=== PATIENT | male | born 1960 | race Hispanic/Latino ===

== ENCOUNTER 2021-06-06 09:48 | Day surgery (SDC) | payer OTHER ==
[2021-06-02 15:49] LABS: Protime INR 0.92
[2021-06-02 16:06] LABS: Absolute Lymphocytes (CBC) 1.4 K/uL (0.7-4.9); Basophils % 0.8 % (0-1.3); Hematocrit 47.2 % (39.6-49.0); Lymphocytes % 19.4 % (15.3-44.8); MPV 9.2 fL (7.6-11.3); RBC Red Blood Cell Count 5.36 M/uL (4.33-5.43)
[2021-06-02 16:50] LABS: COL/ADP 81 SECONDS (56-102); COL/EPI 105 SECONDS (80-184)
--- NOTE | 2021-06-03 11:47 | EKG ---
Test Date: 2021-06-02 Test Time: 13:59:43 Director Drug: SHANICE MEASUREMENT RESULTS: Intervals: Rate: 75 GA: 186 QRSD: 82 QT: 386 QTc: 431 [place]: P: 37 GA: 186 QRS: 8 T: 14 INTERPRETIVE STATEMENTS: Normal sinus rhythm Inferior infarct, age undetermined Abnormal ECG Compared to ECG 06/02/2021 09:14:36 Atrial premature complex(es) no longer present Atrial abnormality no longer present Myocardial infarct finding still present Electronically Signed On 06-03-21 11:47:02 CDT by Nick Conrad
[2021-06-06] MEDS: OXYMETAZOLINE HCL 0.05% 15ML NAS ONE ×3 (10:35→10:50)
[2021-06-06] MEDS ORDERED: Ringers Lactate 1,000 ML IV ONE (10:44)
[2021-06-06] MEDS ORDERED: propofoL 200 MG/20 ML VIAL IV ONE (11:41)
[2021-06-06] MEDS ORDERED: MIDAZOLAM HCL 2 MG/2 ML INJ ONE (11:41)
[2021-06-06] MEDS ORDERED: FENTANYL CITR 100 MCG/2 ML ONE (11:42)
[2021-06-06] MEDS ORDERED: LIDOCAINE 1% MPF 5 ML VIAL ONE (11:42)
[2021-06-06] MEDS ORDERED: ROCURONIUM 50 MG/5 ML VIAL IV ONE (11:42)
[2021-06-06] MEDS ORDERED: OXYMETAZOLINE HCL 0.05% 15ML NAS ONE (12:31)
[2021-06-06] MEDS ORDERED: LIDOCAINE 1% W/EPI 1:100,000 MDV 20 ML VIAL ONE (12:31)
[2021-06-06] MEDS ORDERED: LIDOCAINE JELLY 2%- 5 ML TUBE ONE (12:40)
--- NOTE | 2021-06-06 13:23 | P.BOP ---
Preoperative diagnosis: chronic maxillary sinusitis, left Postoperative diagnosis: same, fungal ball Primary procedure: NE with L max antrostomy and removal of tissue/content writer: NONE,NONE Estimated blood loss: 10ml Specimen: left culture, left sinus contents/trimming Findings: severely inflammed maxillary mucosa Anesthesia: General Complications: None Implants: Propel contour L MM Fluids & blood products: Crystalloid 650ml Transferred to: Recovery Room Condition: Good
[2021-06-06] MEDS ORDERED: GLYCOPYRROLATE 0.2 MG/ML SYR ONE ×2 (13:29)
[2021-06-06] MEDS ORDERED: ONDANSETRON 4 MG/2 ML VIAL ONE (13:30)
[2021-06-06] MEDS ORDERED: NEOSTIGMINE 1 MG/ML -5 ML ONE (13:30)
[2021-06-06] MEDS ORDERED: KETOROLAC 30 MG/ML INJ ONE (13:30)
--- NOTE | 2021-06-06 14:26 | OP ---
Date of Procedure: 06/06/2021 Surgeon: Nimisha Jaimes MD Preoperative Diagnosis: Left chronic maxillary sinusitis suspicious for fungal ball based on CT find ings. Postoperative Diagnosis: Left chronic maxillary sinusitis suspicious for fungal ball based on CT fin dingbaldomero. Procedure: Left nasal endoscopy with maxillary antrostomy and removal of sinus contents and tissue. Indication For Procedure: The patient presented with symptoms of chronic sinusitis and drainage. He was treated with maximal medical therapy and underwent CT scanning, which demonstrated complete opac ification of the left maxillary sinus sparing all other paranasal sinuses. The CT findings were sugg estive due to heterogeneity in opacification with some areas of calcification for a fungal ball. The risks, benefits, and alternatives to the procedure were discussed with the patient, who agreed to pr oceed. Procedure In Detail: The patient was brought to the operating room. He was placed under general ane sthesia via oral endotracheal tube. The head of bed was turned 90 degrees. The nasal hairs were tri mmed. The nasal cavity was packed with Afrin-soaked pledgets. After time for effect, these were rem mark and the 0-degree endoscope was used to perform a nasal endoscopy. The right nasal mucosa, infer ior turbinate, middle turbinate, and middle meatus all appeared normal. The nasopharynx was unremark able. There was no evidence of polyps or pus on the right side. The endoscope was then used to exam ine the left nasal cavity, which demonstrated edematous and erythematous mucosa, particularly of the inferior and middle turbinate. There was obvious thick mucoid purulent appearing drainage filling th e middle meatus and the uncinate process appeared to be somewhat bulging. An aerobic and anaerobic c ulture were collected from the purulence, which was then suctioned. Additional suctioning in the are a of the middle meatus revealed thick brown to green paste like consistency debris, which was partial ly removed. The uncinate process was then removed using a backbiter and a 90-degree [place] allowe d for better visualization of the maxillary sinus. Using a 30 and 70 degree endoscope and curved suc tions, the debris was removed with large chunks of thick brown paste like material being removed from the sinus. Inflamed, edematous, and friable tissue was removed from the sinus in order to provide a dequate opening. Purulent debris remained along the mucosa and a [place] Cyclone was used to forcibl y irrigate the sinus until the mucosa appeared relatively clear and free from pus. The antrostomy wa s documented using a 70-degree endoscope. The mucosa of the maxillary sinus remained very edematous and inflamed appearing with no evidence of polyps at this point in time. A Propel Contour was placed under endoscopic visualization across the antrostomy to aid in decreasing the inflammation and heali ng. A XeroGel dissolvable sinus dressing was then packed within the middle meatus and soaked with sa line in order to aid in hemostasis. All counts of pledgets were confirmed to be correct and the shalini ent was returned to care of Anesthesia for awakening and extubation in the operating room, which proc eeded without difficulty. Complications: None. Specimens: Left sinus contents with culture. Estimated Blood Loss: 15 mL. Disposition: The patient will be discharged home later today and follow up with Dr. Jaimes in about 10 days for evaluation of healing. ROBERT/SUNNY Voice ID: [id number] Report ID: [id number]
[2021-06-06 15:50] VITALS: BP 157/76; TEMP 97.7; O2SAT 98
== END 2021-06-06 14:50 | disposition home or self-care (01) ==
LOC: OR 09:48
PROVIDERS: ATTEND Otolaryngology
PROC: 099R8ZZ Drainage of Left Maxillary Sinus, Via Natural or Artificial Opening Endoscopic (ICD-10-PCS; principal; 2021-06-06 11:30)
DX: J32.0 Chronic maxillary sinusitis (principal)
CPT/HCPCS: 93005; 87070; 85025; 36415; 87205 ×2; 88312; 85610; 88305; 85730; 85576 ×2; 87075; 87077; 87186; 31267; J2704; J2250; J3010; J2710; J7120; J2405; 88304